=== PATIENT | male | born 1965 | race African-American/Black ===

== ENCOUNTER 2024-12-05 17:46 | Emergency (ER) | payer MEDICAID ==
[~2024-12-05] VITALS: Ht 175.3 cm; Wt 137.9 kg
[2024-12-05 17:59] VITALS: BP 171/106; TEMP 37.1; O2SAT 98
[2024-12-05 18:00] VITALS: PULSE 96; RESP 16; O2SAT 96
[2024-12-05] MEDS: FLUORESCEIN SODIUM 1MG/STRIP RIGHTEYE ONE (19:38)
[2024-12-05] MEDS: TETRACAINE 0.5% OPHTH DROPS 4ML RIGHTEYE NR (20:48)
== END 2024-12-05 22:22 | disposition home or self-care (01) ==
LOC: ER 17:46
DX: H57.11 Ocular pain, right eye (principal); I10 Essential (primary) hypertension
CPT/HCPCS: 99283

== ENCOUNTER 2025-07-03 21:50 | Emergency (ER) | payer MEDICAID ==
[~2025-07-03] VITALS: Ht 175.3 cm; Wt 141.0 kg
[2025-07-03 22:36] VITALS: TEMP 36.9; O2SAT 96
[2025-07-04] MEDS ORDERED: ISOP30DR11 EACH EAR (00:40)
[2025-07-04] MEDS ORDERED: AMLO5TAB88 MT (00:51)
[2025-07-04] MEDS: AMLODIPINE 5MG TABLET PO ONE (01:01)
[2025-07-04 01:30] VITALS: BP 169/98; PULSE 72; RESP 18; O2SAT 99
== END 2025-07-04 01:32 | disposition home or self-care (01) ==
LOC: ER 21:50
DX: H61.21 Impacted cerumen, right ear (principal); H53.2 Diplopia; I10 Essential (primary) hypertension
CPT/HCPCS: 69209; 99283